=== PATIENT | female | born 1965 | race Caucasian/White ===

== ENCOUNTER 2017-03-22 20:43 | Inpatient (IN) | payer MEDICARE ==
[2017-03-22] MEDS ORDERED: Charcoal ACTIVATED* 25 GM/120 ML BTL PO ONE (20:46)
[2017-03-22] MEDS ORDERED: NS 0.9% 1000 ML* 1,000 ML IV ONE (20:46)
[2017-03-22 21:03] LABS: Hematocrit 36 % (35-47); Mean Corpuscular HGB Conc 33 g/dl (31-36); Mean Corpuscular Hemoglobin 31 pg (27-31); Mean Corpuscular Volume 94 fL (80-97); Mean Platelet Volume 8 um3 (7.4-10.4); Red Blood Count 3.84 10^6/ul (4.0-5.4); Red Cell Distribution Width 14 % (10.5-15); White Blood Count 7.9 10^3/ul (3.5-10.8)
[2017-03-22 21:18] LABS: ALT 13 U/L (7-52); Albumin 4.2 g/dL (3.2-5.2); Alkaline Phosphatase 39 U/L (34-104); BUN/Creatinine Ratio 15.2 (8-20); Blood Urea Nitrogen 15 mg/dL (6-24); CO2 Carbon Dioxide 26 mmol/L (22-32); Calcium 8.9 mg/dL (8.6-10.3); Chloride 107 mmol/L (101-111); EGFR African American 76.7 (>60); EGFR Non-African American 59.6 (>60); Globulin 2.4 g/dL (2-4); Glucose 99 mg/dL (70-100); Sodium 139 mmol/L (133-145); Total Protein 6.6 g/dL (6.4-8.9)
[2017-03-22 21:26] LABS: AST 24 U/L (13-39); Anion Gap 6 mmol/L (2-11); Potassium 3.9 mmol/L (3.5-5.0)
[2017-03-22 21:35] LABS: Acetaminophen < 15 mcg/mL; Alcohol < 10 mg/dL (<10); Salicylate < 2.50 mg/dL (<30)
[2017-03-22 22:03] LABS: Urine Bacteria Absent (Absent); Urine Bilirubin Negative (Negative); Urine Glucose Negative (Negative); Urine Nitrite Negative (Negative)
[2017-03-22 22:10] LABS: Benzodiazepine Urine Screen None Detected (None Detect)
--- NOTE | 2017-03-22 23:49 | ED ---
jazzmine Hays Timothy, scribed for Garth Bajwa MD on 03/22/17 at 2102 . 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 Her called the ambulance for her. Pt states she does not know why she took so many ambien today. She states she also took some pills of klonopin and cyclobenzaprine. She reports SI ideation for the past few days, per triage. EMS administered 15 g's activated charcoal ROBOT PROGRAMMER. She denies any current pain. Her MHx includes heart murmur, asthma, chronic RSD , hysterectomy, and confirmed MRSA 2009. - History Of Current Complaint Stated Complaint: OVERDOSE Time Seen by Provider: 03/22/17 20:44 Hx Obtained From: Patient Hx Last Menstrual Period: 07/08/15 ?: No Onset/Duration of Drug/ETOH Abuse: Minutes Ingestion History: Type/Name Of Drug - ambien, klonapin, cyclobenzaprine, Approximate Time Of Ingestion - 1944 Overdose Characteristics: Oral Severity Initially: Moderate Severity Currently: Moderate Character: Depressed Associated Signs And Symptoms: Other: - SI Related Hx: Suicidal, Suicidal: Thoughts - Allergies/Home Medications Allergies/Adverse Reactions: Allergies Allergy/AdvReac Type Severity Reaction Status Date / Time Diphenhydramine Allergy Unknown Verified 03/22/17 22:16 [From Benadryl] Reaction Details Hydrocodone Allergy Unknown Verified 03/22/17 22:15 Reaction Details Oxycodone Allergy Unknown Verified 03/22/17 22:15 Reaction Details Home Medications: Home Medications Crestor 10 mg PO DAILY 03/23/17 [History Confirmed 03/23/17] DULoxetine CAP* [Cymbalta CAP*] 60 mg PO DAILY 03/23/17 [History Confirmed ] Gralise 1,800 mg PO DAILY 03/23/17 [History Confirmed 03/23/17] Hydromorphone ER TAB(NF) [Exalgo (NF)] 16 mg PO Q12HR 03/23/17 [History Confirmed 03/23/17] Losartan Potassium 50 mg PO DAILY 03/23/17 [History Confirmed 03/23/17] Naproxen [Naproxen DR 500 MG TAB] 500 mg PO BID WITH MEALS 03/23/17 [History Confirmed 03/23/17] Omeprazole [Prilosec] 20 mg PO DAILY 03/23/17 [History Confirmed 03/23/17] PMH/Surg Hx/FS Hx/Imm Hx Respiratory History: Reports: Hx Asthma Musculoskeletal History: Reports: Other Musculoskeletal History - chronic RSD - Surgical History Surgery Procedure, Year, and Place: Laparoscopy. tonsilectomy. Dilaudid pump Infectious Disease History: Reports: Hx of Known/Suspected MRSA - Sinus cavity, 2009. Skin Denies: Hx Shingles, Hx Tuberculosis, Hx Known/Suspected VRE, Hx Known/ Suspected VRSA, History Other Infectious Disease, Traveled Outside the [place] in Last 30 Days - Family History Known Family History: Negative: Cardiac Disease, Hypertension, Diabetes - Social History Alcohol Use: None Substance Use Type: Reports: None Smoking Status (MU): Never Smoked Tobacco Have You Smoked in the Last Year: No Review of Systems Positive: Other - lethargy - OD on ambien, klonapin, cyclybenzaprine Eyes: Negative ENT: Negative Cardiovascular: Negative Respiratory: Negative Gastrointestinal: Negative Genitourinary: Negative Musculoskeletal: Negative Skin: Negative Neurological: Negative Positive: Depressed All Other Systems Reviewed And Are Negative: Yes Physical Exam Triage Information Reviewed: Yes Vital Signs On Initial Exam: Initial Vitals Temp Pulse Resp BP Pulse Ox 98.8 F 87 16 116/73 90 03/22/17 20:45 03/22/17 20:45 03/22/17 20:45 03/22/17 20:45 03/22/17 20:45 Vital Signs Reviewed: Yes Appearance: Positive: Well-Appearing - sleepy but easily arousable Skin: Positive: Warm Head/Face: Positive: Normal Head/Face Inspection Eyes: Positive: YASH ENT: Positive: Hearing grossly normal Neck: Positive: Supple Respiratory/Lung Sounds: Positive: Clear to Auscultation, Breath Sounds Present Cardiovascular: Positive: RRR Abdomen Description: Positive: Nontender, No Organomegaly, Soft Bowel Sounds: Positive: Present Musculoskeletal: Positive: Strength/ROM Intact Neurological: Positive: Sensory/Motor Intact Psychiatric: Positive: Depressed Diagnostics - Vital Signs Vital Signs Temp Pulse Resp BP Pulse Ox 03/22/17 20:53 82 98 03/22/17 20:52 107/61 03/22/17 20:45 98.8 F 87 16 116/73 90 - Laboratory Lab Results: Lab Results 03/22/17 03/22/17 03/22/17 Range/Units 20:55 20:55 20:55 WBC 7.9 (3.5-10.8) 10^3/ul RBC 3.84 L (4.0-5.4) 10^6/ul Hgb 12.0 (12.0-16.0) g/dl Hct 36 (35-47) % MCV 94 (80-97) fL MCH 31 (27-31) pg MCHC 33 (31-36) g/dl RDW 14 (10.5-15) % Plt Count 224 (150-450) 10^3/ul MPV 8 (7.4-10.4) um3 Neut % (Auto) 51.2 (38-83) % Lymph % (Auto) 38.3 (25-47) % [place] % (Auto) 8.6 (1-9) % Eos % (Auto) 1.3 (0-6) % Baso % (Auto) 0.6 (0-2) % Absolute Neuts (auto) 4.0 (1.5-7.7) 10^3/ul Absolute Lymphs (auto) 3.0 (1.0-4.8) 10^3/ul Absolute Monos (auto) 0.7 (0-0.8) 10^3/ul Absolute Eos (auto) 0.1 (0-0.6) 10^3/ul Absolute Basos (auto) 0 (0-0.2) 10^3/ul Absolute Nucleated RBC 0.01 10^3/ul Nucleated RBC % 0.1 Sodium 139 (133-145) mmol/L Potassium 3.9 (3.5-5.0) mmol/L Chloride 107 (101-111) mmol/L Carbon Dioxide 26 (22-32) mmol/L Anion Gap 6 (2-11) mmol/L BUN 15 (6-24) mg/dL Creatinine 0.99 H (0.51-0.95) mg/dL Est GFR ( Amer) 76.7 (>60) Est GFR (Non-Af Amer) 59.6 (>60) BUN/Creatinine Ratio 15.2 (8-20) Glucose 99 (70-100) mg/dL Lactic Acid 1.1 (0.5-2.0) mmol/L Calcium 8.9 (8.6-10.3) mg/dL Total Bilirubin 0.40 (0.2-1.0) mg/dL AST 24 (13-39) U/L ALT 13 (7-52) U/L Alkaline Phosphatase 39 (34-104) U/L Total Protein 6.6 (6.4-8.9) g/dL Albumin 4.2 (3.2-5.2) g/dL Globulin 2.4 (2-4) g/dL Albumin/Globulin Ratio 1.8 (1-3) Urine Color Urine Appearance Urine pH (5-9) Ur Specific [place] (1.010-1.030) Urine Protein (Negative) Urine Ketones (Negative) Urine Blood (Negative) Urine Nitrate (Negative) Urine Bilirubin (Negative) Urine Urobilinogen (Negative) Ur Leukocyte Esterase (Negative) Urine WBC (Auto) (Absent) Urine RBC (Auto) (Absent) Ur Squamous Epith Cells (Absent) Urine Bacteria (Absent) Urine Glucose (Negative) Salicylates < 2.50 (<30) mg/dL Urine Opiates Screen (None Detect) Acetaminophen < 15 mcg/mL Ur Barbiturates Screen (None Detect) Ur Phencyclidine Scrn (None Detect) Ur Amphetamines Screen (None Detect) U Benzodiazepines Scrn (None Detect) Urine Cocaine Screen (None Detect) U Cannabinoids Screen (None Detect) Serum Alcohol < 10 (<10) mg/dL 03/22/17 03/22/17 Range/Units 21:42 21:42 WBC (3.5-10.8) 10^3/ul RBC (4.0-5.4) 10^6/ul Hgb (12.0-16.0) g/dl Hct (35-47) % MCV (80-97) fL MCH (27-31) pg MCHC (31-36) g/dl RDW (10.5-15) % Plt Count (150-450) 10^3/ul MPV (7.4-10.4) um3 Neut % (Auto) (38-83) % Lymph % (Auto) (25-47) % [place] % (Auto) (1-9) % Eos % (Auto) (0-6) % Baso % (Auto) (0-2) % Absolute Neuts (auto) (1.5-7.7) 10^3/ul Absolute Lymphs (auto) (1.0-4.8) 10^3/ul Absolute Monos (auto) (0-0.8) 10^3/ul Absolute Eos (auto) (0-0.6) 10^3/ul Absolute Basos (auto) (0-0.2) 10^3/ul Absolute Nucleated RBC 10^3/ul Nucleated RBC % Sodium (133-145) mmol/L Potassium (3.5-5.0) mmol/L Chloride (101-111) mmol/L Carbon Dioxide (22-32) mmol/L Anion Gap (2-11) mmol/L BUN (6-24) mg/dL Creatinine (0.51-0.95) mg/dL Est GFR ( Amer) (>60) Est GFR (Non-Af Amer) (>60) BUN/Creatinine Ratio (8-20) Glucose (70-100) mg/dL Lactic Acid (0.5-2.0) mmol/L Calcium (8.6-10.3) mg/dL Total Bilirubin (0.2-1.0) mg/dL AST (13-39) U/L ALT (7-52) U/L Alkaline Phosphatase (34-104) U/L Total Protein (6.4-8.9) g/dL Albumin (3.2-5.2) g/dL Globulin (2-4) g/dL Albumin/Globulin Ratio (1-3) Urine Color Straw Urine Appearance Clear Urine pH 5.0 (5-9) Ur Specific [place] 1.003 L (1.010-1.030) Urine Protein Negative (Negative) Urine Ketones Negative (Negative) Urine Blood 1+ H (Negative) Urine Nitrate Negative (Negative) Urine Bilirubin Negative (Negative) Urine Urobilinogen Negative (Negative) Ur Leukocyte Esterase Negative (Negative) Urine WBC (Auto) Absent (Absent) Urine RBC (Auto) Trace(0-2/hpf) (Absent) Ur Squamous Epith Cells Present H (Absent) Urine Bacteria Absent (Absent) Urine Glucose Negative (Negative) Salicylates (<30) mg/dL Urine Opiates Screen Presumptive positive H (None Detect) Acetaminophen mcg/mL Ur Barbiturates Screen None detected (None Detect) Ur Phencyclidine Scrn None detected (None Detect) Ur Amphetamines Screen None detected (None Detect) U Benzodiazepines Scrn None detected (None Detect) Urine Cocaine Screen None detected (None Detect) U Cannabinoids Screen None detected (None Detect) Serum Alcohol (<10) mg/dL Result Diagrams: 03/22/17 20:55 03/22/17 20:55 Lab Statement: Any lab studies that have been ordered have been reviewed, and results considered in the medical decision making process. - EKG 2051 Cardiac Rate: NL - 81 BPM EKG Interpretation: NSR @ 81 BPM, nonspecific T-wave abnormality Re-Evaluation - Re-Evaluation First Eval Re-Evaluation Time: 22:36 Change: Improved Comment: Pt is agitated, and requested physician to answer some of her questions. Pt had questions answered to her satisfaction. Course/Dx - Course Assessment/Plan: Anai Churchill is a 51 yo female presenting to [facility] S/P OD on 25 -30 tabs ambien, some klonopin, and some cyclobenzeprine at 1945 today. Pt medication list reviewed this visit. In the ED course she received activated charcoal and IV fluids. Her EKG suggests NSR and nonspecific T-wave abnormality. She is medically cleared for [facility] at 0145. She will be signed out pending results of [facility]UE. - Diagnoses Provider Diagnoses: Overdose - Physician Notifications Instructed by Provider To: Admit As Inpatient Discharge - Discharge Plan Condition: Fair Disposition: ADMITTED TO [facility] Discharge Disposition Comment: signed out pending [facility]UE results The documentation as recorded by the jazzmine cisneros Timothy accurately reflects the service I personally performed and the decisions made by me, Garth Bajwa MD.
--- NOTE | 2017-03-23 09:02 | PN ---
Progress Note - Progress Note Date of Service: 03/23/17 Note: Received hand-over communication from Dr. Hunter asking to review case. Initial psych. dispo considered discharge home in keeping with pt. preference, however my opinion is that patient requires psychiatric hospitalization and has sufficient impairment and recent imminent risk of serious harm or that involuntary status is appropriate. Pertinent facts are that she overdoses in the setting of acknowledged recent suicidal thoughts and is unconnected to outpatient services.
[2017-03-23] MEDS ORDERED: Al Hydrox/Mg Hydrox/Simet LIQ* 30 ML UDC PO ONE (10:30)
[2017-03-23] MEDS ORDERED: Omeprazole CAP* 20 MG PO SCH (17:00)
[2017-03-23] MEDS: DULoxetine DR CAP* 60 MG CAP.DR PO SCH (17:02)
[2017-03-23] MEDS: Naproxen TAB* 250 MG PO SCH (17:31)
[2017-03-23] MEDS ORDERED: HYDROmorphone TAB* 2 MG PO SCH (18:00)
[2017-03-23] MEDS: HYDROmorphone TAB* 2 MG PO SCH ×2 (19:18→23:27)
[2017-03-23] MEDS ORDERED: Acetaminophen TAB* 325 MG PO PRN (21:14)
[2017-03-23] MEDS: Gabapentin CAP(*) 300 MG PO SCH (21:55)
[2017-03-23] MEDS: clonazePAM TAB(*) 1 MG PO SCH (21:57)
[2017-03-24] MEDS: hydrOXYzine HCL TAB* 50 MG PO PRN ×2 (00:37→21:27)
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
[2017-03-24] MEDS: HYDROmorphone TAB* 2 MG PO SCH ×6 (03:42→23:30)
[2017-03-24] MEDS: Omeprazole CAP* 20 MG PO SCH ×2 (07:58→20:11)
[2017-03-24] MEDS: Atorvastatin* 20 MG TAB PO SCH (07:58)
[2017-03-24] MEDS: Losartan TAB* 25 MG PO SCH (07:58)
[2017-03-24] MEDS: DULoxetine DR CAP* 60 MG CAP.DR PO SCH ×3 (08:01→12:20)
[2017-03-24] MEDS: Gabapentin CAP(*) 300 MG PO SCH ×4 (08:57→13:52)
[2017-03-24] MEDS ORDERED: Pneumococcal Vac Polyvalent* 0.5 ML VIAL IM ONE (09:00)
[2017-03-24] MEDS ORDERED: PNEUMOCOCCAL 13 VALENT CONJUGATE VACCINE IM ONE (09:00)
[2017-03-24] MEDS: Naproxen TAB* 250 MG PO SCH ×2 (10:40→17:40)
--- NOTE | 2017-03-24 15:19 | PN ---
Subjective - Subjective Service Type: 58467 Hosp care 15 min low complexity Subjective: I reviewed Dr Hunter's sign-out and notes since Sunday afternoon. I have been contacted by to clarify medications (hydromorphone, clonazepam, gabapentin, duloxetine). I checked ISTOP last night, which confirmed regular hydromorphone and clonazepam Rxes. We briefly reviewed events related to hospitalization. She believes accidentally forgetting to take Cymbalta x 5 days may have contributed to increased irritation and impulsive suicide attempt (which she describes as "stupid"). Today her mood is "a lot better" and rates her depression as 3/10 and anxiety as 4-5/10 (10 being the worst). Didn't sleep well last night. Daytime energy is "okay." Notes pain is "still there." Appetite is stable. Denies medication side effects. Denies SI or thoughts of self-harm. Denies feeling agitated. Is future oriented and asks about discharge. She requests Celexa q prn for anxiety, which she says she takes as an outpt. Objective - Appearance Appearance: Well Developed/Nourished Dysmorphic Features: No Hygiene: Normal Grooming: Well Kept - Behavior Psychomotor Activities: Normal Exhibits Abnormal Movement: No - Attitude and Relatedness Attitude and Relatedness: Cooperative Eye Contact: Good - Speech Quality: Unpressured Latencies: Normal Quantity: Appropriate - Mood Patient's Decription of Mood: "better" - Affect Observed Affect: Non-labile Affect Consistent with: Euthymia - Thought Process Patient's Thought Process: Coherent, Goal Directed Thought Content: No Passive Wish, No Suicidal Planning, No Homicidal Ideation, No Paranoid Ideation - Sensorium Experiencing Hallucinations: No, Sensorium is Clear - Level of Consciousness Level of Consciousness: Alert Orientation: Yes Intact, Yes Orientated to Time, Yes Orientated to Place, Yes Orientated to Person - Impulse Control Impulse Control: Tenuous - Insight and Judgement Insight and Judgement: Fair Assessment - Assessment Merits Inpatient Hospitalization: For Stabilization, To Initiate Treatment, For Ongoing Evaluation, Consolidate Improvements, For Discharge Planning, Pending Safe DC Plan Inpatient DSM-IV Dx: Depression, unspecified Clinical Impression: 51yo female with a hx of chronic pain (Reflex Sympathetic Dystrophy), anxiety, depression admitted after overdosing in impulsive suicide gesture. Her medication regime is complex. She is doing fairly well and regrets recent suicide attempt. Plan - Plan Treatment Plan: Name: JUDE VALERIO Birthdate: 1965 [id number] - change Cymbalta to 120mg po qam - d/c gabapentin and switch to Gralise 1800mg po qhs ( bringing in tonight) - continue clonazepam 2mg po qhs for anxiety, insomnia (she has regularly received 90 1mg tablets/mo) - continue Vistaril prn - continue meds for cholesterol, HTN - to confirm therapy appt for Wed - to work with D/c Lifter to find local psychiatrist Medications: Current Medications Acetaminophen (Tylenol Tab*) 650 mg PO Q6H PRN PRN Reason: PAIN Atorvastatin Calcium (Lipitor*) 20 mg PO DAILY SOPHIA PRN Reason: Protocol Last Admin: 03/24/17 07:58 Dose: 20 mg Clonazepam (Klonopin Tab(*)) 2 mg PO BEDTIME SOPHIA Last Admin: 03/23/17 21:57 Dose: 2 mg Duloxetine HCl (Cymbalta Cap*) 60 mg PO 0900,1200 [facility] Last Admin: 03/24/17 12:20 Dose: 60 mg Gabapentin (Neurontin Cap(*)) 600 mg PO TID SOPHIA Last Admin: 03/24/17 13:52 Dose: Not Given Hydromorphone HCl (Dilaudid Tab*) 4 mg PO Q4H SOPHIA Last Admin: 03/24/17 12:21 Dose: 4 mg Hydroxyzine HCl (Atarax Tab*) 50 mg PO Q6H PRN PRN Reason: AGITATION/ANXIETY/INSOMNIA Last Admin: 03/24/17 00:37 Dose: 50 mg Losartan Potassium (Cozaar Tab*) 50 mg PO DAILY SOPHIA Last Admin: 03/24/17 07:58 Dose: 50 mg Naproxen (Naprosyn Tab*) 500 mg PO Q12H SOPHIA Last Admin: 03/24/17 10:40 Dose: Not Given Omeprazole (Prilosec Cap*) 20 mg PO BID SOPHIA Last Admin: 03/24/17 07:58 Dose: 20 mg
[2017-03-24] MEDS: clonazePAM TAB(*) 1 MG PO SCH (20:11)
[2017-03-24] MEDS: GRALISE 600 MG PO SCH (21:20)
[2017-03-25] MEDS: Naproxen TAB* 250 MG PO SCH ×2 (03:42→17:29)
[2017-03-25] MEDS: HYDROmorphone TAB* 2 MG PO SCH ×5 (03:42→19:30)
[2017-03-25] MEDS: Losartan TAB* 25 MG PO SCH (07:44)
[2017-03-25] MEDS: DULoxetine DR CAP* 60 MG CAP.DR PO SCH (07:44)
[2017-03-25] MEDS: Omeprazole CAP* 20 MG PO SCH ×2 (07:45→20:13)
[2017-03-25] MEDS: Atorvastatin* 20 MG TAB PO SCH (07:45)
[2017-03-25 08:35] VITALS: BP 111/74
[2017-03-25] MEDS: clonazePAM TAB(*) 1 MG PO SCH (20:13)
[2017-03-25] MEDS: GRALISE 600 MG PO SCH (20:14)
[2017-03-25] MEDS: hydrOXYzine HCL TAB* 50 MG PO PRN (20:17)
[2017-03-26] MEDS: HYDROmorphone TAB* 2 MG PO SCH ×3 (03:56→10:53)
[2017-03-26] MEDS: Naproxen TAB* 250 MG PO SCH (03:57)
[2017-03-26] MEDS: Losartan TAB* 25 MG PO SCH (08:37)
[2017-03-26] MEDS: Atorvastatin* 20 MG TAB PO SCH (08:37)
[2017-03-26] MEDS: DULoxetine DR CAP* 60 MG CAP.DR PO SCH (08:37)
[2017-03-26] MEDS: Omeprazole CAP* 20 MG PO SCH (08:37)
--- NOTE | 2017-03-26 14:01 | PN ---
[facility]: Group Therapy Note - Service Type Service Type: 40201 Group Psychotherapy - Cognitive Behavioral Group Therapy ( CBT):Patient was attentive and participatory in CBT programming this morning, and remained in good behavioral control. Patient expressed positive insights regarding relevant treatment interventions and goals.
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
== END 2017-03-26 14:30 | disposition home or self-care (01) | DRG 881 ==
LOC: ED 20:43 → BSU 03-23 08:58
PROVIDERS: ADMIT Psychiatry & Neurology Psychiatry; ATTEND Psychiatry & Neurology Psychiatry
DX: F32.9 Major depressive disorder, single episode, unspecified (principal); I10 Essential (primary) hypertension; G90.50 Complex regional pain syndrome I, unspecified; J45.909 Unspecified asthma, uncomplicated; E78.5 Hyperlipidemia, unspecified; T42.4X2A Poisoning by benzodiazepines, intentional self-harm, initial encounter; T48.1X2A Poisoning by skeletal muscle relaxants [neuromuscular blocking agents], intentional self-harm, initial encounter; Y92.9 Unspecified place or not applicable; X58.XXXA Exposure to other specified factors, initial encounter; Z79.899 Other long term (current) drug therapy; Z88.5 Allergy status to narcotic agent; Z88.8 Allergy status to other drugs, medicaments and biological substances; Z81.8 Family history of other mental and behavioral disorders
CPT/HCPCS: 36415; 80053; 80307; 80320; 80329; 81003; 81015; 83605; 85025; 90732; 90853; 93005; 96372; 99222; 99231; 99238; 99285; A9270-GY; G0480

== ENCOUNTER 2018-12-27 12:44 | Emergency (ER) | payer MEDICARE, MEDICAID ==
[2018-12-27 14:02] VITALS: BP 111/85
--- NOTE | 2018-12-27 18:13 | ED ---
Bite Injury/Animal - HPI Summary HPI Summary: Patient is a 52-year-old female who presents emergency department for evaluation of cat bite to her right hand that occurred last night. Patient states that she was playing with her cat when it playfully bit her right hand. She states that area previously got more painful, red and swollen. Patient notes cat is immunized. States last tetanus immunization was within 5 years. Patient notes chills without fever. Moving right hip makes symptoms worse. Rest makes symptoms better. No past medical history of diabetes. Symptoms are mild in severity. - History of Current Complaint Chief Complaint: EDAnimalBite Stated Complaint: ANIMAL BITE ON RIGHT ARM PER PT Time Seen by Provider: 12/27/18 13:04 Hx Obtained From: Patient Hx Last Menstrual Period: 07/08/15 Pain Intensity: 8 Pain Scale Used: 0-10 Numeric - Allergies/Home Medications Allergies/Adverse Reactions: Allergies Allergy/AdvReac Type Severity Reaction Status Date / Time diphenhydramine Allergy Anxiety Verified 12/27/18 13:14 hydrocodone Allergy Unknown Verified 12/27/18 13:14 Reaction Details oxycodone Allergy Unknown Verified 12/27/18 13:14 Reaction Details Home Medications: Home Medications Buprenorphine HCl/Naloxone HCl [Zubsolv 11.4-2.9 mg Tablet Sl] 1 tab SL TID [History Confirmed 12/27/18] DULoxetine DR CAP* [Cymbalta CAP*] 90 mg PO DAILY 12/27/18 [History Confirmed ] lamoTRIgine [Lamictal] 50 mg PO DAILY 12/27/18 [History Confirmed 12/27/18] PMH/Surg Hx/FS Hx/Imm Hx Previously Healthy: Yes Cardiovascular History: Reports: Hx Hypertension - Pain related per pt, Other Cardiovascular Problems/Disorders - Hx of Afib twice per pt. Respiratory History: Reports: Hx Asthma Musculoskeletal History: Reports: Other Musculoskeletal History - chronic RSD Sensory History: Reports: Hx Contacts or Glasses Denies: Hx Hearing Aid Opthamlomology History: Reports: Hx Contacts or Glasses Neurological History: Reports: Hx Nerve Disease Psychiatric History: Reports: [facility]x [facility] Mental Health Tx Denies: Hx Eating Disorder, Hx of Violent Episodes Against Others - Cancer History Hx Chemotherapy: No Hx Radiation Therapy: No - Surgical History Surgery Procedure, Year, and Place: Laparoscopy. tonsilectomy. Dilaudid pump Infectious Disease History: No Infectious Disease History: Reports: Hx of Known/Suspected MRSA - Sinus cavity, 2010. Skin Denies: Hx Shingles, Hx Tuberculosis, Hx Known/Suspected VRE, Hx Known/ Suspected VRSA, History Other Infectious Disease, Traveled Outside the [place] in Last 30 Days - Family History Known Family History: Negative: Cardiac Disease, Hypertension, Diabetes - Social History Occupation: Unemployed Lives: With Family Alcohol Use: None Substance Use Type: Reports: None Substance Use Comment - Amount & Last Used: Prescribed Smoking Status (MU): Never Smoked Tobacco Amount Used/How Often: Pt has not smoked or used other tobacco products in last 30 days Have You Smoked in the Last Year: No Review of Systems Positive: Chills. Negative: Fever Gastrointestinal: Negative Negative: Vomiting, Nausea Positive: Other - wound, pain and redness to right hand Negative: Weakness, Paresthesia, Numbness All Other Systems Reviewed And Are Negative: Yes Physical Exam Triage Information Reviewed: Yes Vital Signs On Initial Exam: Initial Vitals Temp Pulse Resp BP Pulse Ox 98.8 F 90 18 129/62 97 12/27/18 12:49 12/27/18 12:49 12/27/18 12:49 12/27/18 12:49 12/27/18 12:49 Vital Signs Reviewed: Yes Appearance: Positive: Well-Appearing - Pt. sitting on chair in NAD. Friend present. Skin: Positive: Warm, Dry Head/Face: Positive: Normal Head/Face Inspection Eyes: Positive: Normal, EOMI Neck: Positive: Supple Musculoskeletal: Positive: Other - A few small puncture wounds noted to proximal right thumb on the dorsal/lateral aspect. Mild overlying erythema and edema extending to dorsum of hand and mildly on wrist. Able to flex and extend digits with pain. Full ROM of wrist with pain. Neurological: Positive: Normal, CN Intact II-III Psychiatric: Positive: Affect/Mood Appropriate Diagnostics - Vital Signs Vital Signs Temp Pulse Resp BP Pulse Ox 12/27/18 14:01 98.8 F 88 16 111/85 94 12/27/18 12:49 98.8 F 90 18 129/62 97 - Laboratory Lab Statement: Any lab studies that have been ordered have been reviewed, and results considered in the medical decision making process. Bite Injury Course/Dx - Course Course Of Treatment: Patient presenting for evaluation of patient presenting for evaluation of cat bite. She does have a mild infection to her right hand. There is mild edema and pain. No signs of flexor tenosynovitis on exam at this time. X-ray is negative for signs of deep space infection, foreign body, fracture, reading per radiology. We'll start patient on Augmentin. Advised her to elevate hand and apply warm compresses. Advised her to see family doctor on Sunday for wound check. Advised patient she may need to return over the weekend for IV antibiotics if worsening erythema, edema, pain, fever vomiting occurs. Ibuprofen for pain as directed. Patient understands and agrees with plan. - Diagnoses Differential Diagnosis/HQI/PQRI: Positive: Cellulitis, Fracture, Puncture, Superficial Infection, Deep Space Infection Provider Diagnosis: Cat bite, Wound infection Discharge - Sign-Out/Discharge Documenting (check all that apply): Patient Departure Patient Received Moderate/Deep Sedation with Procedure: No - Discharge Plan Condition: Good Disposition: HOME Prescriptions: Amoxicillin/Clavulanate TAB* [Augmentin TAB 875*] 875 mg PO BID 10 Days #20 tab Patient Education Materials: Animal Bite (ED), Wound Infection (ED) Referrals: [facility] [Primary Care Provider] - Additional Instructions: Follow up with PCP for wound check on Sunday Take antibiotic as directed Ibuprofen for pain as directed Apply warm compresses and elevate hand Return to ER for fever, increased redness/swelling, inability to straighten fingers, or if concerned - Billing Disposition and Condition Condition: GOOD Disposition: Home
== END 2018-12-27 14:01 | disposition home or self-care (01) ==
LOC: ED 12:44
DX: S61.451A Open bite of right hand, initial encounter (principal); L08.9 Local infection of the skin and subcutaneous tissue, unspecified; W55.01XA Bitten by cat, initial encounter; Y92.9 Unspecified place or not applicable; Z88.5 Allergy status to narcotic agent; I10 Essential (primary) hypertension; I48.91 Unspecified atrial fibrillation; J45.909 Unspecified asthma, uncomplicated; G58.9 Mononeuropathy, unspecified
CPT/HCPCS: 99282

== ENCOUNTER → 2019-01-17 17:33 | Emergency (ER) | payer MEDICAID ==
--- NOTE | 2019-01-17 18:28 | ED ---
Lower Extremity - HPI Summary HPI Summary: 53 yo female presents to the ED with RIGHT foot injury. She tells me about 3 hours ago she stubbed her right foot against a desk at home. Has had pain to her right foot since. She is able to bear weight, but has pain. Her friend brought her crutches and she has been using those due to pain. Pt tells me that she has a history of a fracture in this foot and, as a result, has chronic pain for which she sees a pain doctor in [place]. She is also currently being weaned off po dilaudid for this pain. She endorses some numbness to this right foot, but states this is chronic. - History of Current Complaint Chief Complaint: EDExtremityLower Stated Complaint: RT FOOT INJURY PER PT Time Seen by Provider: 01/17/19 18:03 Hx Obtained From: Patient Hx Last Menstrual Period: 07/08/15 Onset/Duration: Hours Severity Initially: Severe Severity Currently: Severe Pain Intensity: 8 Pain Scale Used: 0-10 Numeric - Allergies/Home Medications Allergies/Adverse Reactions: Allergies Allergy/AdvReac Type Severity Reaction Status Date / Time diphenhydramine Allergy Anxiety Verified 01/17/19 17:45 hydrocodone Allergy Unknown Verified 01/17/19 17:45 Reaction Details oxycodone Allergy Unknown Verified 01/17/19 17:45 Reaction Details Home Medications: Home Medications Cyclobenzaprine TAB* [Flexeril 10 MG TAB*] 10 mg PO BID PRN 01/17/19 [History Confirmed 01/17/19] Fluticasone NASAL SPRAY 50MCG* [Flonase NASAL SPRAY 50MCG*] 2 spray BOTH NARES DAILY 01/17/19 [History Confirmed 01/17/19] Loratadine [Claritin] 10 mg PO DAILY 01/17/19 [History Confirmed 01/17/19] Losartan TAB* [Cozaar TAB*] 50 mg PO DAILY 01/17/19 [History Confirmed 01/17/19] Montelukast Sodium TAB* [Singulair TAB*] 10 mg PO BEDTIME 01/17/19 [History Confirmed 01/17/19] Rosuvastatin Calcium [Crestor] 10 mg PO DAILY 01/17/19 [History Confirmed ] clonazePAM [Clonazepam] 1 mg PO TID PRN 01/17/19 [History Confirmed 01/17/19] PMH/Surg Hx/FS Hx/Imm Hx Cardiovascular History: Reports: Hx Hypertension - Pain related per pt, Other Cardiovascular Problems/Disorders - Hx of Afib twice per pt. Respiratory History: Reports: Hx Asthma Musculoskeletal History: Reports: Other Musculoskeletal History - chronic RSD Sensory History: Reports: Hx Contacts or Glasses Denies: Hx Hearing Aid Opthamlomology History: Reports: Hx Contacts or Glasses Neurological History: Reports: Hx Nerve Disease Psychiatric History: Reports: Hx [facility] Mental Health Tx Denies: Hx Eating Disorder, Hx of Violent Episodes Against Others - Cancer History Hx Chemotherapy: No Hx Radiation Therapy: No - Surgical History Surgery Procedure, Year, and Place: Laparoscopy. tonsilectomy. Dilaudid pump Infectious Disease History: Yes Infectious Disease History: Reports: Hx of Known/Suspected MRSA - Sinus cavity, 2009. Skin Denies: Hx Shingles, Hx Tuberculosis, Hx Known/Suspected VRE, Hx Known/ Suspected VRSA, History Other Infectious Disease, Traveled Outside the [place] in Last 30 Days - Family History Known Family History: Negative: Cardiac Disease, Hypertension, Diabetes - Social History Alcohol Use: None Substance Use Type: Reports: None Substance Use Comment - Amount & Last Used: Prescribed Smoking Status (MU): Never Smoked Tobacco Amount Used/How Often: Pt has not smoked or used other tobacco products in last 30 days Have You Smoked in the Last Year: No Review of Systems Constitutional: Negative Cardiovascular: Negative Respiratory: Negative Positive: Other - Right foot pain Skin: Negative Neurological: Negative Psychological: Normal All Other Systems Reviewed And Are Negative: Yes Physical Exam - Summary Physical Exam Summary: GENERAL: NAD. WDWN. No pain distress. SKIN: No rashes, sores, lesions, or open wounds. CHEST: No accessory muscle use. Breathing comfortably and in no distress. CV: Pulses intact PT and DP. Cap refill <2seconds MSK: RIGHT FOOT: TTP about 4th MT. Moves all toes without pain. FROM at right ankle without pain. Strength 5/5. No edema or obvious bony deformities. NEURO: Alert. Sensations intact and symmetric B/L LEs PSYCH: Age appropriate behavior. Triage Information Reviewed: Yes Vital Signs On Initial Exam: Initial Vitals Temp Pulse Resp BP Pulse Ox 98.1 F 89 16 154/90 97 01/17/19 17:40 01/17/19 17:40 01/17/19 17:40 01/17/19 17:40 01/17/19 17:40 Vital Signs Reviewed: Yes Diagnostics - Vital Signs Vital Signs Temp Pulse Resp BP Pulse Ox 01/17/19 17:40 98.1 F 89 16 154/90 97 - Laboratory Lab Statement: Any lab studies that have been ordered have been reviewed, and results considered in the medical decision making process. Lower Extremity Course/Dx - Course Course Of Treatment: XR right foot: No radiologist reading after 1800, therefore wet read by myself is negative for fx. Discussed results with pt. Will provide her with crutches to use. Advised to RICE and f/u with her pain doctor in [place]. Pt agreeable with plan. - Diagnoses Provider Diagnoses: Contusion of right foot Discharge - Sign-Out/Discharge Documenting (check all that apply): Patient Departure Patient Received Moderate/Deep Sedation with Procedure: No - Discharge Plan Condition: Stable Disposition: HOME Patient Education Materials: Crutch Instructions (ED), Metatarsalgia (DC) Referrals: [facility] [Primary Care Provider] - Additional Instructions: If you develop a fever, shortness of breath, chest pain, new or worsening symptoms - please call your PCP or go to the ED. Your blood pressure was high at todays visit. Please see your primary provider within 4 weeks for recheck and re-evaluation. 1) Rest, Ice, and elevate your foot as much as possible 2) Please call your pain doctor for a recheck and for pain management regarding your foot - Billing Disposition and Condition Condition: STABLE Disposition: Home
[2019-01-17 19:22] VITALS: BP 114/78
== END | disposition home or self-care (01) ==
LOC: ED 17:33
DX: S90.31XA Contusion of right foot, initial encounter (principal); W22.8XXA Striking against or struck by other objects, initial encounter; Y92.019 Unspecified place in single-family (private) house as the place of occurrence of the external cause; I10 Essential (primary) hypertension; Z86.14 Personal history of Methicillin resistant Staphylococcus aureus infection; Z88.5 Allergy status to narcotic agent
CPT/HCPCS: 99281